=== PATIENT | female | born 2000 | race Hispanic/Latino ===

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

== ENCOUNTER 2018-02-15 11:33 | Emergency (ER) | payer OTHER ==
[2018-02-15] MEDS ORDERED: Sodium Chloride 0.9% 1,000 ML IV STA (12:01)
[2018-02-15 12:03] VITALS: BP 139/70; PULSE 96; RESP 17; TEMP 98; O2SAT 100
--- NOTE | 2018-02-15 12:22 | ED PDOC ---
HPI: General Adult Time Seen by Provider: 02/15/18 11:47 Chief Complaint (Nursing): Syncope Chief Complaint (Provider): Near-syncopal episode History Per: Patient History/Exam Limitations: no limitations Onset/Duration Of Symptoms: Days (x1) Additional Complaint(s): Kasandra Rausch is a 17 year old female, with a past medical history of "irregular heartbeat," who was brought to the emergency department by EMS after patient had palpitations this morning and also reports hearing a "static noise" in bilateral ears for x1 day. Patient states yesterday she was taking a shower when she started to hear a "static noise" and feel nauseous. She fell to the ground but did not lose consciousness. She was able to get up after a few minutes and felt better. However, this morning she started hearing the same noise and began having palpitations prompting ED visit. Patient reports similar symptoms once in August. Patient also reports having congestion for x3 days but denies any shortness of breath, chest pain, recent travel or leg swelling. No further medical complaints. PMD: None provided. Past Medical History Reviewed: Historical Data, Nursing Documentation, Vital Signs Vital Signs: Last Vital Signs Temp 98 F 02/15/18 12:03 Pulse 96 H 02/15/18 12:03 Resp 17 02/15/18 12:03 BP 139/70 02/15/18 12:03 Pulse Ox 100 02/15/18 12:03 - Medical History PMH: Asthma Other PMH: "irregular heartbeat" - Surgical History Surgical History: No Surg Hx - Family History Family History: States: Unknown Family Hx - Social History Current smoker - smoking cessation education provided: No Alcohol: None Drugs: Denies - Immunization History Hx Tetanus Toxoid Vaccination: No Hx Influenza Vaccination: No Hx Pneumococcal Vaccination: No - Home Medications Home Medications: Ambulatory Orders Medication Instructions Recorded DiphenhydrAMINE [Benadryl] 25 mg PO QID PRN #12 cap 03/31/17 Epinephrine [Epipen] 0.3 mg IJ ONCE PRN #2 auto.injct 03/31/17 Prednisone 50 mg PO DAILY #4 tab 03/31/17 predniSONE [predniSONE Tab] 10 mg PO TID #15 tab 04/07/17 - Allergies Allergies/Adverse Reactions: Allergies Allergy/AdvReac Type Severity Reaction Status Date / Time latex Allergy RASH Verified 02/15/18 11:54 nickel Allergy RASH Verified 02/15/18 11:54 nut - unspecified Allergy RASH Verified 02/15/18 11:54 Review of Systems ROS Statement: Except As Marked, All Systems Reviewed And Found Negative ENT: Positive for: Nose Congestion, Other ("static noise") Cardiovascular: Positive for: Palpitations. Negative for: Chest Pain, Edema Respiratory: Negative for: Shortness of Breath Gastrointestinal: Positive for: Nausea Physical Exam - Reviewed Nursing Documentation Reviewed: Yes Vital Signs Reviewed: Yes - Physical Exam Appears: Positive for: No Acute Distress Head Exam: Positive for: ATRAUMATIC, NORMOCEPHALIC Skin: Positive for: Normal Color, Warm, Dry Eye Exam: Positive for: Normal appearance, EOMI, PERRL ENT: Positive for: Normal ENT Inspection, TM Is/Are (intact) Neck: Positive for: Painless ROM Cardiovascular/Chest: Positive for: Regular Rate, Rhythm. Negative for: Murmur Respiratory: Positive for: Normal Breath Sounds. Negative for: Respiratory Distress Gastrointestinal/Abdominal: Positive for: Normal Exam, Soft. Negative for: Tenderness, Guarding, Rebound Back: Positive for: Normal Inspection. Negative for: L CVA Tenderness, R CVA Tenderness, Vertebral Tenderness Extremity: Positive for: Normal ROM (upper and lower extremities). Negative for: Deformity, Swelling Neurologic/Psych: Positive for: Alert, Oriented, Gait (steady). Negative for: Motor/Sensory Deficits - Laboratory Results Result Diagrams: 02/15/18 12:39 02/15/18 12:39 - ECG O2 Sat by Pulse Oximetry: 100 (RA) Pulse Ox Interpretation: Normal Medical Decision Making Medical Decision Making: Time: 11:47 Initial Impression: Palpitations Initial Plan: --Head w/o contrast [CT] --EKG --CMP --Urine --Urine dipstick --CBC w/ differential --D Dimer --PTT --PT --Chest two views (PA/LAT) [RAD] --Sodium Chloride 1,000 ml IV 1,000 mls/hr --Urinalysis --Reevaluation 12:48 CXR FINDINGS: LUNGS: No active pulmonary disease. PLEURA: No significant pleural effusion identified. No pneumothorax apparent. CARDIOVASCULAR: Normal. OSSEOUS STRUCTURES: No significant abnormalities. VISUALIZED UPPER ABDOMEN: Normal. OTHER FINDINGS: None. IMPRESSION: No active disease. 14:00 -Parents at bedside. pt states she was diagnosed with a mild concussion by feeder associate after a window fell on her head, no LOC, nausea, vomit at the time. Patient reports just some headache after incident EKG: Sinus rhythm @ 75bpm. Sinus arrhythmia, nonspecific T wave abnormality. --------- Scribe Attestation: Documented by Gerry Garcia, acting as a scribe for Wen Brown MD. Provider Scribe Attestation: All medical record entries made by the Scribe were at my direction and personally dictated by me. I have reviewed the chart and agree that the record accurately reflects my personal performance of the history, physical exam, medical decision making, and the department course for this patient. I have also personally directed, reviewed, and agree with the discharge instructions and disposition. Disposition - Disposition Forms: [employer] (Latvian)
[2018-02-15 12:33] LABS: SQUAMOUS EPITHIAL < 1 /hpf (0-5); URINE BACTERIA OCC (<OCC); URINE BILIRUBIN NEGATIVE (NEGATIVE); URINE BLOOD NEGATIVE (NEGATIVE); URINE CLARITY SLIGHTY-CLOUDY (Clear); URINE COLOR STRAW (YELLOW); URINE GLUCOSE (UA) NEG (Normal); URINE LEUKOCYTE ESTERASE NEG Leu/uL (Negative); URINE PROTEIN NEGATIVE (NEGATIVE); URINE UROBILINOGEN 0.2-1.0 mg/dL (0.2-1.0)
[2018-02-15 12:48] LABS: BASO % 0.8 % (0.0-2.0); EOS % 0.5 % (0.0-4.0); HEMOGLOBIN 13.4 g/dL (12.0-16.0); LYMPH % 23.7 % (20.0-40.0); MEAN CELL VOLUME 81.9 fl (81.0-99.0); MEAN CORPUSCULAR HEMOGLOBIN 27.8 pg (27.0-31.0); MEAN PLATELET VOLUME 9.3 fl (7.2-11.7); MONO # 0.3 K/uL (0.0-0.8); MONO % 7.3 % (0.0-10.0); NEUT # 2.8 K/uL (1.8-7.0); NEUT % 67.7 % (50.0-75.0); RBC 4.81 Mil/uL (3.80-5.20); RED CELL DISTRIBUTION WIDTH 12.8 % (11.5-14.5); WHITE BLOOD COUNT 4.2 K/uL (4.8-10.8)
--- NOTE | 2018-02-15 12:49 | RAD ---
Date of service: 02/15/2018 HISTORY: Near syncope COMPARISON: No prior. TECHNIQUE: Chest PA and lateral FINDINGS: LUNGS: No active pulmonary disease. PLEURA: No significant pleural effusion identified. No pneumothorax apparent. CARDIOVASCULAR: Normal. OSSEOUS STRUCTURES: No significant abnormalities. VISUALIZED UPPER ABDOMEN: Normal. OTHER FINDINGS: None. IMPRESSION: No active disease.
[2018-02-15 12:53] LABS: PROTHROMBIN TIME 11.6 Seconds (9.8-13.1)
[2018-02-15 12:55] LABS: PARTIAL THROMBOPLASTIN TIME 32.4 Seconds (25.6-37.1)
[2018-02-15 13:01] LABS: ALB/GLOB RATIO 1.3 (1.0-2.1); ALBUMIN 4.7 g/dL (3.5-5.0); ALT/SGPT 22 U/L (9-52); AST/SGOT 26 U/L (14-36); BLOOD UREA NITROGEN 8 mg/dl (7-17); CALCIUM 9.6 mg/dL (8.4-10.2); GFR NON-AFRICAN AMERICAN > 60
--- NOTE | 2018-02-15 14:31 | CARD ---
APPROVED REPORT Date of service: 02/15/2018 EKG Measurement Heart [id number] IA 128P [id number] <Conclusion> Sinus rhythm with marked sinus arrhythmia Nonspecific T wave abnormality Abnormal ECG
[2018-02-15] MEDS ORDERED: Iodixanol 320 MG/ML 100 ML BOTTLE IV ONE (16:25)
[2018-02-15] MEDS ORDERED: Sodium Chloride 0.9% 50 ML IV ONE (16:26)
--- NOTE | 2018-02-15 16:57 | CT ---
Date of service: 02/15/2018 PROCEDURE: CT HEAD WITHOUT CONTRAST. HISTORY: Near syncope COMPARISON: None available. TECHNIQUE: Axial computed tomography images were obtained through the head/brain without intravenous contrast. Radiation dose: Total exam DLP = 803.4 mGy-cm. This CT exam was performed using one or more of the following dose reduction techniques: Automated exposure control, adjustment of the mA and/or kV according to patient size, and/or use of iterative reconstruction technique. FINDINGS: HEMORRHAGE: No intracranial hemorrhage. BRAIN: No mass effect or edema. No atrophy or chronic microvascular ischemic changes. VENTRICLES: Unremarkable. No hydrocephalus. CALVARIUM: Unremarkable. PARANASAL SINUSES: Mild bilateral ethmoid air cell opacification. MASTOID AIR CELLS: Unremarkable as visualized. No inflammatory changes. OTHER FINDINGS: None. IMPRESSION: No acute intracranial pathology. Mild ethmoid sinus disease.
--- NOTE | 2018-02-15 17:18 | ED PDOC ---
- Laboratory Results Result Diagrams: 02/15/18 12:39 02/15/18 12:39 - ECG O2 Sat by Pulse Oximetry: 100 (RA) Medical Decision Making Medical Decision Makinp received on endorsement from Dr Brown pending CTA chest and CT brain 4p Patient again interviewed with parents, they report no history blood clots in family or other risk factors for thromboembolic disease Patient states she feels better, denies chest pain, SOB or dizziness currently./ Accession No. : [id number] Patient Name / ID : JAYNE KHAN / [id number] Exam Date : 02/15/2018 16:33:01 ( Approved ) Study Comment : Sex / Age : F / 17Y Creator : Filiberto Foster MD Dictator : Filiberto Foster MD Marine Equipment Research Engineer : Leather Stitcher : Filiberto Foster MD Approver2 : Report Date : 02/15/2018 16:55:51 My Comment : Date of service: 02/15/2018 PROCEDURE: CT HEAD WITHOUT CONTRAST. HISTORY: Near syncope COMPARISON: None available. TECHNIQUE: Axial computed tomography images were obtained through the head/brain without intravenous contrast. Radiation dose: Total exam DLP = 803.4 mGy-cm. This CT exam was performed using one or more of the following dose reduction techniques: Automated exposure control, adjustment of the mA and/or kV according to patient size, and/or use of iterative reconstruction technique. FINDINGS: HEMORRHAGE: No intracranial hemorrhage. BRAIN: No mass effect or edema. No atrophy or chronic microvascular ischemic changes. VENTRICLES: Unremarkable. No hydrocephalus. CALVARIUM: Unremarkable. PARANASAL SINUSES: Mild bilateral ethmoid air cell opacification. MASTOID AIR CELLS: Unremarkable as visualized. No inflammatory changes. OTHER FINDINGS: None. IMPRESSION: No acute intracranial pathology. Mild ethmoid sinus disease. Accession No. : [id number] Patient Name / ID : JAYNE KHAN / [id number] Exam Date : 02/15/2018 16:41:24 ( Approved ) Study Comment : Sex / Age : F / 17Y Creator : johnathon sanders Dictator : Adis Ruano MD Marine Equipment Research Engineer : Leather Stitcher : Adis Ruano MD Approver2 : Report Date : 02/15/2018 17:25:43 My Comment : Date of service: 02/15/2018 PROCEDURE: CT Chest with contrast (Pulmonary Angiogram) HISTORY: SOB, palpitations COMPARISON: None available. TECHNIQUE: Axial computed tomography images were obtained of the chest in the pulmonary arterial phase of enhancement. Coronal and sagittal reformatted images were created and reviewed. Maximum intensity projection (MIP) reconstructed images in the following planes: Axial only. Intravenous contrast dose: 70 cc Visipaque 320 Mean Hounsfield value in the main pulmonary artery: 150.11 Radiation dose: Total exam DLP = 158.80 mGy-cm. This CT exam was performed using one or more of the following dose reduction techniques: Automated exposure control, adjustment of the mA and/or kV according to patient size, and/or use of iterative reconstruction technique. FINDINGS: PULMONARY ARTERIES: No large/main or central pulmonary emboli. Nondiagnostic study at and beyond the segmental branch level. This relates to poor opacification of the pulmonary arteries. AORTA: No acute findings. No thoracic aortic aneurysm. LUNGS: Unremarkable. No nodule, mass or pulmonary consolidation. PLEURAL SPACES: Unremarkable. No effusion or pneumothorax. HEART: Unremarkable. No cardiomegaly. No significant pericardial effusion. LYMPH NODES: No lymphadenopathy. BONES, CHEST WALL: Unremarkable. No fracture or destructive lesion OTHER FINDINGS: Unremarkable. IMPRESSION: No central pulmonary emboli identified. Nondiagnostic study at and beyond segmental branch level. 610p Patient denies SOB or currently chest pain. gambling monitor reveals sinus in 70s without ectopy orthostatics repeated and unremarkable Offered hospitalization observation given recurrent symptoms but prefer to go home and followup. Asymptomatic now >7hrs. given copy ekg to bring to PMD/cardio Had long discussion w patient and parents on findings and need for followup. She reports amenorrhea x6mos, likely needs outpt endo/neuro/cardio workup. Parents to take home tonight. Has PMD in [facility] but may seek care in [place] near school. DC from ED, instructions given and opportunity Disposition - Clinical Impression Clinical Impression: Syncope, Sinusitis - POA Present On Arrival: None - Disposition Referrals: Ania Rollins MD [Medical Doctor] - Ian Lopez MD [Staff Provider] - Disposition: Routine/Home Disposition Time: 18:20 Condition: STABLE Additional Instructions: Followup with cardiology/ neurology and/or PMD in next several days. Return to ER for any return of symptoms. Avoid exertion or heavy exercise until you see ca rdiology/neurology. Avoid being alone for next 48hours. Drink plenty of fluids. Instructions: Sinusitis in Adults, Syncope (Fainting), Tilt Table Test Forms: [employer] (Pashto)
--- NOTE | 2018-02-15 17:37 | CT ---
Date of service: 02/15/2018 PROCEDURE: CT Chest with contrast (Pulmonary Angiogram) HISTORY: SOB, palpitations COMPARISON: None available. TECHNIQUE: Axial computed tomography images were obtained of the chest in the pulmonary arterial phase of enhancement. Coronal and sagittal reformatted images were created and reviewed. Maximum intensity projection (MIP) reconstructed images in the following planes: Axial only. Intravenous contrast dose: 70 cc Visipaque 320 Mean Hounsfield value in the main pulmonary artery: 150.11 Radiation dose: Total exam DLP = 158.80 mGy-cm. This CT exam was performed using one or more of the following dose reduction techniques: Automated exposure control, adjustment of the mA and/or kV according to patient size, and/or use of iterative reconstruction technique. FINDINGS: PULMONARY ARTERIES: No large/main or central pulmonary emboli. Nondiagnostic study at and beyond the segmental branch level. This relates to poor opacification of the pulmonary arteries. AORTA: No acute findings. No thoracic aortic aneurysm. LUNGS: Unremarkable. No nodule, mass or pulmonary consolidation. PLEURAL SPACES: Unremarkable. No effusion or pneumothorax. HEART: Unremarkable. No cardiomegaly. No significant pericardial effusion. LYMPH NODES: No lymphadenopathy. BONES, CHEST WALL: Unremarkable. No fracture or destructive lesion OTHER FINDINGS: Unremarkable. IMPRESSION: No central pulmonary emboli identified. Nondiagnostic study at and beyond segmental branch level.
== END 2018-02-15 18:18 | disposition home or self-care (01) ==
LOC: H.ER 11:33
DX: R55 Syncope and collapse (principal); J32.9 Chronic sinusitis, unspecified
CPT/HCPCS: 70450; 71046; 71275; 80053; 81003; 81025; 85025; 85378; 85610; 85730; 93005; 96360; 99285; J7030; Q9967